=== PATIENT | male | born 1980 | race Caucasian/White ===

== ENCOUNTER 2016-10-08 18:48 | Emergency (ER) | payer SELFPAY ==
[2016-10-08] MEDS ORDERED: IBUPROFEN 800 MG TAB As Ordered ONE (20:52)
--- NOTE | 2016-10-08 21:30 | EDDOCDS ---
Physician Documentation [facility] Name: Diogenes Wong Age: 36 yrs Sex: Male : 1980 Arrival Date: 10/08/2016 Time: 18:48 Bed TR7 Private MD: Disposition: 10/08/16 21:20 Discharged to Home/Self Care. Impression: Pain in right shoulder - POSSIBLE DISLOCATION WITH SPONTANEOUS REDUCTION. - Condition is Stable. - Discharge Instructions: Shoulder Dislocation, Shoulder Pain. - Prescriptions for Ibuprofen 800 mg Oral Tablet - take 1 tablet by ORAL route every 12 hours As needed take with food; 20 tablet. - Medication Reconciliation, Local Pharmacy Hours form. - Follow up: [facility]; When: 2 - 3 days; Reason: Recheck today's complaints, Continuance of care. - Problem is new. - Symptoms have improved. - Notes: USE MOTRIN AND SLING INSTRUTCED, FOLLOW UP WITH [facility], RETURN TO THE ER IF THE SYMPTOMS WORSEN OR BECOME CONCERNING Historical: - Allergies: tylenol with codeine; - Home Meds: 1. ferrous sulfate 325 mg (65 mg iron) Oral TbEC daily - PMHx: iron deficiency anemia; - PSHx: ankle surgery; mouth surgery; - Social history: Smoking status: Patient uses tobacco products, heavy tobacco smoker. No barriers to communication noted, The patient speaks fluent Maltese, Speaks appropriately for age. - Family history: Not pertinent. - : The pt / caregiver states he / she is not on anticoagulants. Home medication list is obtained from the patient. - Exposure Risk Screening:: None identified. Vital Signs: 10/08 18:54 BP 145 / 82; Pulse 108; Resp 22 S; Temp 98.0; Pulse Ox 98% on R/A; Weight 102.06 kg / dd6 225 lbs (R); Height 5 ft. 10 in. (177.80 cm) (R); 21:27 BP 142 / 90; Pulse 82; Resp 18; Temp 98.5(T); Pulse Ox 96% on R/A; Pain 3/10; ttb 18:54 Body Mass Index 32.28 (102.06 kg, 177.80 cm) dd6 MDM: 20:[address] [facility] 20:37 [facility] Payment Agreement was scanned into MEDHOST and attached to record. [email or web address] 20:51 Ibuprofen 800 mg PO once ordered. ck7 20:53 Shoulder, Complete Ordered. EDMS 21:20 Sling ordered. ck7 Administered Medications: 20:53 Drug: Ibuprofen 800 mg [ibuprofen 800 mg tablet (1 tabs)] Route: PO; baldemar Signatures: Dispatcher MedHost EDMS Perez Gray, CARLEE-C RPA-Cck7 Anna Goode RN RN Jus Seo RN RN jmb Rebeca Navarrete, Reg Reg [email or web address] The chart was reviewed and I authenticate all verbal orders and agree with the evaluation and treatment provided.Attachments: 20:37 [facility] Payment Agreement [email or web address] MTDD
--- NOTE | 2016-10-08 21:30 | EDDOCDS ---
Nurse's Notes [facility] Name: Diogenes Wong Age: 36 yrs Sex: Male : 1980 Arrival Date: 10/08/2016 Time: 18:48 Bed TR7 Private MD: Diagnosis: Pain in right shoulder-POSSIBLE DISLOCATION WITH SPONTANEOUS REDUCTION Presentation: 10/08 18:51 Pt has arrived by ambulance. I have assessed this patient and found them stable to be dy assessed through the triage process. 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 pain worse with movement of arm. CMS intact with strong distal pulses. no obvious deformity. pt with pain like this in the past. . 18:57 Presenting complaint: Patient states: Patient reports shoulder injury. Denies jmb dislocation. Patient reports inability to move arm. Adult Sepsis Screening: The patient does not have new or worsening altered mentation. Patient's respiratory rate is less than 22. Systolic blood pressure is greater than 100. Patient has a qSOFA score of 0- Negative Sepsis Screen. Suicide/Homicide risk assessment- the patient denies having any suicidal and/or homicidal ideations and does not present with any other emotional, behavioral or mental health complaints. Status: Patient is not a services coordinator or dependent. Transition of care: patient was not received from another setting of care. 18:57 Acuity: ABDI Level 4 [facility] 18:57 Method Of Arrival: Walkin/Carried/Asstd [facility] Triage Assessment: 18:59 General: Appears uncomfortable, Behavior is appropriate for age, cooperative. Pain: jmb Location: right arm Pain currently is 10 out of 10 on a pain scale. Pt Declines HIV testing. Neurological: Level of Consciousness is awake, alert, obeys commands, Oriented to person, place, time, Speech is normal, Facial symmetry appears normal, Facial symmetry: tongue is midline. Respiratory: Airway is patent Respiratory effort is even, unlabored, Respiratory pattern is regular, symmetrical. Derm: Skin is pink, warm & dry. Musculoskeletal: Range of motion limited in right shoulder. Historical: - Allergies: tylenol with codeine; - Home Meds: 1. ferrous sulfate 325 mg (65 mg iron) Oral TbEC daily - PMHx: iron deficiency anemia; - PSHx: ankle surgery; mouth surgery; - Social history: Smoking status: Patient uses tobacco products, heavy tobacco smoker. No barriers to communication noted, The patient speaks fluent Greenlandic, Speaks appropriately for age. - Family history: Not pertinent. - : The pt / caregiver states he / she is not on anticoagulants. Home medication list is obtained from the patient. - Exposure Risk Screening:: None identified. Screenin:27 Screening information is obtained from the patient. Fall risk: No risks identified. ttb Assistance ADL's: requires no assistance with activities of daily living. Abuse/DV Screen: The patient / caregiver reports he/she is: not in a situation that causes fear, pain or injury. Nutritional screening: No deficits noted. Advance Directives: Currently, there is no health care proxy. home support is adequate. Assessment: 21:27 General: Appears in no apparent distress, well nourished, Behavior is appropriate for ttb age, cooperative, pleasant. Pain: Location: right shoulder Pain currently is 3 out of 10 on a pain scale. Neurological: Level of Consciousness is awake, alert. Cardiovascular: Chest pain is denied. Respiratory: No deficits noted. Airway is patent Respiratory effort is even, unlabored, Denies cough, shortness of breath. GI: Denies nausea, vomiting, pain. Derm: Skin is normal. Musculoskeletal: Range of motion limited in right shoulder. Injury Description: repeat injury to right shoudler. Vital Signs: 18:54 BP 145 / 82; Pulse 108; Resp 22 S; Temp 98.0; Pulse Ox 98% on R/A; Weight 102.06 kg dd6 (R); Height 5 ft. 10 in. (177.80 cm) (R); 21:27 BP 142 / 90; Pulse 82; Resp 18; Temp 98.5(T); Pulse Ox 96% on R/A; Pain 3/10; ttb 18:54 Body Mass Index 32.28 (102.06 kg, 177.80 cm) dd6 Vitals: 18:54 Log In Time: October 08, 2016 at 18:52. dd6 ED Course: 18:48 Patient visited by Barbie Jefferson, Photograph Enlarger. deg 18:48 Patient moved to Waiting deg 18:55 Patient moved to Pre RCE dd6 18:58 Triage Initiated jmb 20:15 Patient moved to Triage 2 jmb 20:31 Perez [facility] ck7 20:31 Aramis Mitchell DO is Attending Physician. ck7 20:31 Patient visited by Perez Gray RPA-C. ck7 20:37 [facility] Payment Agreement was scanned into [employer] and attached to record. ks16 20:39 Patient name changed from Diogenes\S\\S\Marvin\S\ to Diogenes\S\ \S\Marvin. EDMS 20:53 Patient moved to TR1 jmb 21:09 Patient visited by Perez Gray RPA-C. ck7 21:20 [facility] is Referral Physician. ck7 21:21 Patient moved to PR1 / 25 ttb 21:27 Patient moved to TR7 jmb 21:27 The patient / caregiver is instructed regarding the plan of care and ED course. ttb Accompanied by Family Member, Patient has correct armband on for positive identification. 21:27 No IV's were initiated during this patient's visit. No procedures done that require ttb assistance. 21:29 Sling applied to right arm. Patient with positive distal sensation and brisk distal ttb capillary refill after application. Administered Medications: 20:53 Drug: Ibuprofen 800 mg [ibuprofen 800 mg tablet (1 tabs)] Route: PO; jmb Order Results: There are currently no results for this order. Outcome: 21:20 Discharge ordered by Provider. ck7 21:27 Discharge Assessment: Patient awake, alert and oriented x 3. No cognitive and/or ttb functional deficits noted. Patient verbalized understanding of disposition instructions. Patient awake and alert. patient administered narcotics - no. The following High Risk Discharge criteria are identified: None. Discharged to home ambulatory, with parent. Condition: good Condition: stable Condition: improved. Discharge instructions given to patient, parents Instructed on discharge instructions, follow up and referral plans. medication usage, Rest, Ice, Compression and Elevation. Demonstrated understanding of instructions, medications, RICE, use of sling Pt was receptive of discharge instructions/ teaching. Prescriptions given X 1. No special radiology studies were completed. Property :Personal belongings accompany Pt. 21:29 Patient left the ED. ttb Signatures: Dispatcher MedHo EDMS Barbie Jefferson, Photograph Enlarger Unit deg Spencer Womack RN RN dy Desormeau, Daniell, APPLICATIONS SALES REPRESENTATIVE APPLICATIONS SALES REPRESENTATIVE dd6 Perez Gray RPA-C RPA-[facility]7 Anna Goode, RN RN ttb Jus Deluca,RN RN Rebeca Seymour, Reg Reg ks16 MTDD
--- NOTE | 2016-10-09 08:13 | REP ---
Clinical: Deformity and swelling . Technique: Internal rotation, external rotation, and Y view right shoulder . Findings: No acute fracture or dislocation. The acromioclavicular and glenohumeral joints are intact. No periarticular calcifications or degenerative changes are appreciated. Sub acromial space is normal. Surrounding soft tissues are unremarkable. Impression: Normal right shoulder radiographs. Signed by Anthony Guerrero MD 10/09/2016 08:04 A
--- NOTE | 2016-10-10 22:30 | EDDOCDS ---
Physician Documentation [facility] Name: Diogenes Wong Age: 36 yrs Sex: Male : 1980 Arrival Date: 10/08/2016 Time: 18:48 Bed TR7 Private MD: Disposition: 10/08/16 21:20 Discharged to Home/Self Care. Impression: Pain in right shoulder - POSSIBLE DISLOCATION WITH SPONTANEOUS REDUCTION. - Condition is Stable. - Discharge Instructions: Shoulder Dislocation, Shoulder Pain. - Prescriptions for Ibuprofen 800 mg Oral Tablet - take 1 tablet by ORAL route every 12 hours As needed take with food; 20 tablet. - Medication Reconciliation, Local Pharmacy Hours form. - Follow up: [facility]; When: 2 - 3 days; Reason: Recheck today's complaints, Continuance of care. - Problem is new. - Symptoms have improved. - Notes: USE MOTRIN AND SLING INSTRUTCED, FOLLOW UP WITH [facility], RETURN TO THE ER IF THE SYMPTOMS WORSEN OR BECOME CONCERNING Historical: - Allergies: tylenol with codeine; - Home Meds: 1. ferrous sulfate 325 mg (65 mg iron) Oral TbEC daily - PMHx: iron deficiency anemia; - PSHx: ankle surgery; mouth surgery; - Social history: Smoking status: Patient uses tobacco products, heavy tobacco smoker. No barriers to communication noted, The patient speaks fluent Turkish, Speaks appropriately for age. - Family history: Not pertinent. - : The pt / caregiver states he / she is not on anticoagulants. Home medication list is obtained from the patient. - Exposure Risk Screening:: None identified. Vital Signs: 10/08 18:54 BP 145 / 82; Pulse 108; Resp 22 S; Temp 98.0; Pulse Ox 98% on R/A; Weight 102.06 kg / dd6 225 lbs (R); Height 5 ft. 10 in. (177.80 cm) (R); 21:27 BP 142 / 90; Pulse 82; Resp 18; Temp 98.5(T); Pulse Ox 96% on R/A; Pain 3/10; ttb 18:54 Body Mass Index 32.28 (102.06 kg, 177.80 cm) dd6 MDM: 20:37 Financial registration complete. [facility] 20:37 [facility] Payment Agreement was scanned into [employer] and attached to record. [email or web address] 20:51 Ibuprofen 800 mg PO once ordered. 20:53 Shoulder, Complete Ordered. EDMS 21:20 Sling ordered. ck7 10/09 08:13 T-Sheet-- Draft Copy was scanned into [employer] and attached to record. [facility] Administered Medications: 10/08 20:53 Drug: Ibuprofen 800 mg [ibuprofen 800 mg tablet (1 tabs)] Route: PO; baldemar Signatures: Dispatcher MedHost EDMS Perez Gray, ALEM RPA-Cck7 Anna Goode, RN RN Jus SeoRN RN Rebeca Seymour, Reg Reg ks16 Joleen Quiroz se The chart was reviewed and I authenticate all verbal orders and agree with the evaluation and treatment provided.Attachments: 20:37 [facility] Payment Agreement [email or web address] 10/09 08:13 T-Sheet-- Draft Copy [facility] Chart Complete MTDD
--- NOTE | 2016-10-10 22:30 | EDDOCDS ---
Physician Documentation [facility] Name: Diogenes Wong Age: 36 yrs Sex: Male : 1980 Arrival Date: 10/08/2016 Time: 18:48 Bed TR7 Private MD: Disposition: 10/08/16 21:20 Discharged to Home/Self Care. Impression: Pain in right shoulder - POSSIBLE DISLOCATION WITH SPONTANEOUS REDUCTION. - Condition is Stable. - Discharge Instructions: Shoulder Dislocation, Shoulder Pain. - Prescriptions for Ibuprofen 800 mg Oral Tablet - take 1 tablet by ORAL route every 12 hours As needed take with food; 20 tablet. - Medication Reconciliation, Local Pharmacy Hours form. - Follow up: [facility]; When: 2 - 3 days; Reason: Recheck today's complaints, Continuance of care. - Problem is new. - Symptoms have improved. - Notes: USE MOTRIN AND SLING INSTRUTCED, FOLLOW UP WITH [facility], RETURN TO THE ER IF THE SYMPTOMS WORSEN OR BECOME CONCERNING Historical: - Allergies: tylenol with codeine; - Home Meds: 1. ferrous sulfate 325 mg (65 mg iron) Oral TbEC daily - PMHx: iron deficiency anemia; - PSHx: ankle surgery; mouth surgery; - Social history: Smoking status: Patient uses tobacco products, heavy tobacco smoker. No barriers to communication noted, The patient speaks fluent Telugu, Speaks appropriately for age. - Family history: Not pertinent. - : The pt / caregiver states he / she is not on anticoagulants. Home medication list is obtained from the patient. - Exposure Risk Screening:: None identified. Vital Signs: 10/08 18:54 BP 145 / 82; Pulse 108; Resp 22 S; Temp 98.0; Pulse Ox 98% on R/A; Weight 102.06 kg / dd6 225 lbs (R); Height 5 ft. 10 in. (177.80 cm) (R); 21:27 BP 142 / 90; Pulse 82; Resp 18; Temp 98.5(T); Pulse Ox 96% on R/A; Pain 3/10; ttb 18:54 Body Mass Index 32.28 (102.06 kg, 177.80 cm) dd6 MDM: 20:37 Financial registration complete. [facility] 20:37 [facility] Payment Agreement was scanned into RABT and attached to record. [email or web address] 20:51 Ibuprofen 800 mg PO once ordered. 20:53 Shoulder, Complete Ordered. EDMS 21:20 Sling ordered. ck7 10/09 08:13 T-Sheet-- Draft Copy was scanned into RABT and attached to record. [facility] Administered Medications: 10/08 20:53 Drug: Ibuprofen 800 mg [ibuprofen 800 mg tablet (1 tabs)] Route: PO; baldemar Signatures: Dispatcher MedHost EDMS Perez Gray, ALEM RPA-Cck7 Anna Goode, RN RN Jus SeoRN RN Rebeca Seymour, Reg Reg ks16 Joleen Quiroz se The chart was reviewed and I authenticate all verbal orders and agree with the evaluation and treatment provided.Attachments: 20:37 [facility] Payment Agreement [email or web address] 10/09 08:13 T-Sheet-- Draft Copy [facility] Chart Complete MTDD
--- NOTE | 2016-10-10 22:30 | EDDOCDS ---
Nurse's Notes [facility] Name: Diogenes Wong Age: 36 yrs Sex: Male : 1980 Arrival Date: 10/08/2016 Time: 18:48 Bed TR7 Private MD: Diagnosis: Pain in right shoulder-POSSIBLE DISLOCATION WITH SPONTANEOUS REDUCTION Presentation: 10/08 18:51 Pt has arrived by ambulance. I have assessed this patient and found them stable to be dy assessed through the triage process. 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 pain worse with movement of arm. CMS intact with strong distal pulses. no obvious deformity. pt with pain like this in the past. . 18:57 Presenting complaint: Patient states: Patient reports shoulder injury. Denies jmb dislocation. Patient reports inability to move arm. Adult Sepsis Screening: The patient does not have new or worsening altered mentation. Patient's respiratory rate is less than 22. Systolic blood pressure is greater than 100. Patient has a qSOFA score of 0- Negative Sepsis Screen. Suicide/Homicide risk assessment- the patient denies having any suicidal and/or homicidal ideations and does not present with any other emotional, behavioral or mental health complaints. Status: Patient is not a floor worker well service or dependent. Transition of care: patient was not received from another setting of care. 18:57 Acuity: ABDI Level 4 [facility] 18:57 Method Of Arrival: Walkin/Carried/Asstd [facility] Triage Assessment: 18:59 General: Appears uncomfortable, Behavior is appropriate for age, cooperative. Pain: jmb Location: right arm Pain currently is 10 out of 10 on a pain scale. Pt Declines HIV testing. Neurological: Level of Consciousness is awake, alert, obeys commands, Oriented to person, place, time, Speech is normal, Facial symmetry appears normal, Facial symmetry: tongue is midline. Respiratory: Airway is patent Respiratory effort is even, unlabored, Respiratory pattern is regular, symmetrical. Derm: Skin is pink, warm & dry. Musculoskeletal: Range of motion limited in right shoulder. Historical: - Allergies: tylenol with codeine; - Home Meds: 1. ferrous sulfate 325 mg (65 mg iron) Oral TbEC daily - PMHx: iron deficiency anemia; - PSHx: ankle surgery; mouth surgery; - Social history: Smoking status: Patient uses tobacco products, heavy tobacco smoker. No barriers to communication noted, The patient speaks fluent Guinean, Speaks appropriately for age. - Family history: Not pertinent. - : The pt / caregiver states he / she is not on anticoagulants. Home medication list is obtained from the patient. - Exposure Risk Screening:: None identified. Screenin:27 Screening information is obtained from the patient. Fall risk: No risks identified. ttb Assistance ADL's: requires no assistance with activities of daily living. Abuse/DV Screen: The patient / caregiver reports he/she is: not in a situation that causes fear, pain or injury. Nutritional screening: No deficits noted. Advance Directives: Currently, there is no health care proxy. home support is adequate. Assessment: 21:27 General: Appears in no apparent distress, well nourished, Behavior is appropriate for ttb age, cooperative, pleasant. Pain: Location: right shoulder Pain currently is 3 out of 10 on a pain scale. Neurological: Level of Consciousness is awake, alert. Cardiovascular: Chest pain is denied. Respiratory: No deficits noted. Airway is patent Respiratory effort is even, unlabored, Denies cough, shortness of breath. GI: Denies nausea, vomiting, pain. Derm: Skin is normal. Musculoskeletal: Range of motion limited in right shoulder. Injury Description: repeat injury to right shoudler. Vital Signs: 18:54 BP 145 / 82; Pulse 108; Resp 22 S; Temp 98.0; Pulse Ox 98% on R/A; Weight 102.06 kg dd6 (R); Height 5 ft. 10 in. (177.80 cm) (R); 21:27 BP 142 / 90; Pulse 82; Resp 18; Temp 98.5(T); Pulse Ox 96% on R/A; Pain 3/10; ttb 18:54 Body Mass Index 32.28 (102.06 kg, 177.80 cm) dd6 Vitals: 18:54 Log In Time: October 08, 2016 at 18:52. dd6 ED Course: 18:48 Patient visited by Barbie Jefferson, Poultry Processor. deg 18:48 Patient moved to Waiting deg 18:55 Patient moved to Pre RCE dd6 18:58 Triage Initiated jmb 20:15 Patient moved to Triage 2 jmb 20:31 Perez Gray RPA-C [facility]. ck7 20:31 Aramis Mitchell DO is Attending Physician. ck7 20:31 Patient visited by Perez Gray RPA-C. ck7 20:37 [facility] Payment Agreement was scanned into [employer] and attached to record. ks16 20:39 Patient name changed from Diogenes\S\\S\Marvin\S\ to Diogenes\S\ \S\Marvin. EDMS 20:53 Patient moved to TR1 jmb 21:09 Patient visited by Perez Gray RPA-C. ck7 21:20 [facility] is Referral Physician. ck7 21:21 Patient moved to PR1 / 25 ttb 21:27 Patient moved to TR7 jmb 21:27 The patient / caregiver is instructed regarding the plan of care and ED course. ttb Accompanied by Family Member, Patient has correct armband on for positive identification. 21:27 No IV's were initiated during this patient's visit. No procedures done that require ttb assistance. 21:29 Sling applied to right arm. Patient with positive distal sensation and brisk distal ttb capillary refill after application. 10/09 08:13 T-Sheet-- Draft Copy was scanned into [employer] and attached to record. [facility] 08:32 Shoulder, Complete Returned. EDMS Administered Medications: 10/08 20:53 Drug: Ibuprofen 800 mg [ibuprofen 800 mg tablet (1 tabs)] Route: PO; jmb Order Results: Radiology Order: Shoulder, Complete Test: Shoulder, Complete REASON FOR EXAMINATION: Deformity/Swelling; Clinical: Deformity and swelling .; ; Technique: Internal rotation, external rotation, and Y view right shoulder .; ; Findings:; No acute fracture or dislocation. The acromioclavicular and glenohumeral joints; are intact. No periarticular calcifications or degenerative changes are; appreciated. Sub acromial space is normal. Surrounding soft tissues are; unremarkable.; ; Impression:; Normal right shoulder radiographs.; ; ; Signed by; Anthony Guerrero MD 10/09/2016 08:04 A; Outcome: 21:20 Discharge ordered by Provider. ck7 21:27 Discharge Assessment: Patient awake, alert and oriented x 3. No cognitive and/or ttb functional deficits noted. Patient verbalized understanding of disposition instructions. Patient awake and alert. patient administered narcotics - no. The following High Risk Discharge criteria are identified: None. Discharged to home ambulatory, with parent. Condition: good Condition: stable Condition: improved. Discharge instructions given to patient, parents Instructed on discharge instructions, follow up and referral plans. medication usage, Rest, Ice, Compression and Elevation. Demonstrated understanding of instructions, medications, RICE, use of sling Pt was receptive of discharge instructions/ teaching. Prescriptions given X 1. No special radiology studies were completed. Property :Personal belongings accompany Pt. 21:29 Patient left the ED. ttb Signatures: Dispatcher MedHost EDMS Barbie Jefferson, Poultry Processor Unit deg Spencer Womack, RN RN Eyad Marcus, MEDICAL RECORDS TECH MEDICAL RECORDS TECH dd6 Perez Gray, RPA-C RPA-Cck7 Anna Goode RN RN Jus SeoRN RN Rebeca Seymour, Reg Reg ks16 [facility], Joleen cristina Chart Complete MTDD
== END 2016-10-08 21:29 | disposition home or self-care (01) ==
LOC: M ED 18:48
DX: M25.511 Pain in right shoulder (principal); D50.9 Iron deficiency anemia, unspecified; F17.200 Nicotine dependence, unspecified, uncomplicated; Z79.899 Other long term (current) drug therapy; Z88.5 Allergy status to narcotic agent

== ENCOUNTER 2018-04-28 06:35 | Emergency (ER) | payer SELFPAY ==
[2018-04-28] MEDS: EPINEPHrine INJ 1 MG/ML 1ML AMP IM (07:19)
[2018-04-28] MEDS: FAMOTIDINE IV BAG 20 MG in APPROPRIATE DILUENT 1 EA IV (08:17)
[2018-04-28 08:22] LABS: BASO % 0.3 % (0.0-1.0); EOS # 0.2 10^3/uL (0.0-0.50); EOS % 1.7 % (0.0-3.0); HEMATOCRIT 38.5 % (42.0-52.0); HEMOGLOBIN 12.9 g/dl (13.5-17.5); IMMATURE GRANULOCYTE % 0.2 % (0-3.0); LYMPH # 1.9 10^3/uL (1.5-4.5); LYMPH % 19.7 % (24.0-44.0); MEAN CORPUSCULAR HEMOGLOBIN 30.8 pg (27.0-33.0); MEAN CORPUSCULAR HGB CONC 33.5 g/dl (32.0-36.5); MEAN CORPUSCULAR VOLUME 91.9 fl (80.0-96.0); MONO # 0.5 10^3/uL (0.0-0.8); MONO % 5.8 % (0.0-5.0); NEUTROPHILS # 6.8 10^3/uL (1.8-7.7); NEUTROPHILS % 72.3 % (36.0-66.0); PLATELET COUNT, AUTOMATED 281 10^3/uL (150-450); RED BLOOD COUNT 4.19 10^6/uL (4.30-6.10); RED CELL DISTRIBUTION WIDTH 14.6 % (11.5-14.5); WHITE BLOOD COUNT 9.4 10^3/uL (4.0-10.0)
[2018-04-28 08:57] LABS: ERYTHROCYTE SEDIMENTATION RATE 16 mm/hr (0-15)
[2018-04-28 08:59] LABS: ALBUMIN 3.3 GM/DL (3.2-5.2); ALBUMIN/GLOBULIN RATIO 0.89 (1.00-1.93); ALKALINE PHOSPHATASE 77 U/L (45-117); ALT/SGPT 31 U/L (12-78); ANION GAP 3 MEQ/L (8-16); AST/SGOT 13 U/L (7-37); BILIRUBIN,DIRECT < 0.1 MG/DL (0.0-0.2); BILIRUBIN,TOTAL 0.3 MG/DL (0.2-1.0); BLOOD UREA NITROGEN 13 MG/DL (7-18); C REACTIVE PROTEIN QUANTITATIV 0.89 MG/DL (0.00-0.30); CALCIUM LEVEL 8.7 MG/DL (8.5-10.1); CARBON DIOXIDE LEVEL 27 MEQ/L (21-32); CHLORIDE LEVEL 110 MEQ/L (98-107); GLOMERULAR FILTRATION RATE > 60.0 (>60); GLUCOSE, FASTING 100 MG/DL (70-100); POTASSIUM SERUM 4.4 MEQ/L (3.5-5.1); SODIUM LEVEL 140 MEQ/L (136-145)
[2018-04-28 08:59] LABS: COMPLEMENT C4 17.8 MG/DL (10-40)
== END 2018-04-28 11:20 | disposition home or self-care (01) ==
LOC: M ED 06:35
DX: R22.1 Localized swelling, mass and lump, neck (principal); T78.3XXA Angioneurotic edema, initial encounter; T78.2XXA Anaphylactic shock, unspecified, initial encounter; X58.XXXA Exposure to other specified factors, initial encounter; Y92.89 Other specified places as the place of occurrence of the external cause; R03.0 Elevated blood-pressure reading, without diagnosis of hypertension; K21.9 Gastro-esophageal reflux disease without esophagitis; Z88.5 Allergy status to narcotic agent; Z88.8 Allergy status to other drugs, medicaments and biological substances; Z91.030 Bee allergy status; F17.210 Nicotine dependence, cigarettes, uncomplicated
CPT/HCPCS: 80076

== ENCOUNTER 2019-08-23 13:12 | Emergency (ER) | payer MEDICAID, SELFPAY ==
[~2019-08-23] VITALS: Ht 177.8 cm; Wt 95.5 kg
[~2019-08-23 13:12] MED LIST: EPIP0.3I2 IM
--- NOTE | 2019-08-23 14:14 | REP ---
Clinical: Chest pain . Comparison: 06/29/2009 . Findings: The mediastinum and cardiac silhouette are stable and within normal limits for portable technique. The lung meng are clear without acute consolidation, effusion, or pneumothorax. Skeletal structures are intact. Impression: No acute cardiopulmonary process appreciated. Electronically Signed by Anthony Guerrero MD 08/23/2019 02:05 P
[2019-08-23] MEDS ORDERED: SUCRALFATE SUSP 1GM/10ML UD PO ONE (14:15)
[2019-08-23 14:17] LABS: BASO # 0.1 10^3/uL (0.0-0.2); BASO % 0.8 % (0.0-1.0); EOS # 0.3 10^3/uL (0.0-0.5); EOS % 2.5 % (0.0-3.0); HEMATOCRIT 42.3 % (42.0-52.0); HEMOGLOBIN 13.5 g/dl (13.5-17.5); LYMPH # 4.1 10^3/uL (1.5-5.0); LYMPH % 38.3 % (24.0-44.0); MEAN CORPUSCULAR HEMOGLOBIN 28.8 pg (27.0-33.0); MEAN CORPUSCULAR HGB CONC 31.9 g/dl (32.0-36.5); MEAN CORPUSCULAR VOLUME 90.4 fl (80.0-96.0); MONO # 0.9 10^3/uL (0.0-0.8); NEUTROPHILS # 5.3 10^3/uL (1.5-8.5); NEUTROPHILS % 50.2 % (36.0-66.0); PLATELET COUNT, AUTOMATED 295 10^3/uL (150-450); RED BLOOD COUNT 4.68 10^6/uL (4.30-6.10); WHITE BLOOD COUNT 10.6 10^3/uL (4.0-10.0)
[2019-08-23 14:45] LABS: ALBUMIN 3.4 GM/DL (3.2-5.2); ALT/SGPT 40 U/L (12-78); AMYLASE 30 U/L (25-115); BILIRUBIN,DIRECT < 0.1 MG/DL (0.0-0.2); BILIRUBIN,TOTAL 0.2 MG/DL (0.2-1.0); BLOOD UREA NITROGEN 9 MG/DL (7-18); CALCIUM LEVEL 9.4 MG/DL (8.5-10.1); CARBON DIOXIDE LEVEL 28 MEQ/L (21-32); CHLORIDE LEVEL 105 MEQ/L (98-107); CK-MB VALUE MASS < 1.0 NG/ML (<3.6); CPK CREATINE PHOSPHOKINASE 68 U/L (39-308); GLOMERULAR FILTRATION RATE > 60.0 (>60); GLUCOSE, FASTING 124 MG/DL (70-100); LIPASE 151 U/L (73-393); MB/CK RELATIVE INDEX 1.47 (< OR =4); POTASSIUM SERUM 3.8 MEQ/L (3.5-5.1); SODIUM LEVEL 140 MEQ/L (136-145); TOTAL PROTEIN 7.3 GM/DL (6.4-8.2); TROPONIN I < 0.02 NG/ML (< 0.10)
[2019-08-23] MEDS ORDERED: PEPC1TAB5 PO (15:07)
[2019-08-23] MEDS ORDERED: SUCR1SS PO (15:07)
[2019-08-23 15:24] VITALS: BP 125/74
--- NOTE | 2019-08-23 16:31 | ECGEPIP ---
[facility] - ED Test Date: 2019-08-23 Pat Name: TANIA GALLO Department: Room: - Gender: Male Punch Machine Hand: lucas : 1980 Requested By: Joleen Samlls Order Number: [id number] Reading MD: Joleen Smalls Measurements Intervals [place] Rate: 116 P: 25 MA: 136 QRS: 9 QRSD: 82 T: 28 QT: 303 QTc: 421 Interpretive Statements SINUS TACHYCARDIA LOW QRS VOLTAGE IN PRECORDIAL LEADS NONSPECIFIC ST & T-WAVE ABNORMALITY ABNORMAL RHYTHM ECG No prior Electronically Signed on 08-23-2019 16:30:37 EST by Joleen Smalls
== END 2019-08-23 15:25 | disposition home or self-care (01) ==
LOC: M ED 13:12
DX: K21.9 Gastro-esophageal reflux disease without esophagitis (principal); K29.70 Gastritis, unspecified, without bleeding; R00.0 Tachycardia, unspecified; R94.31 Abnormal electrocardiogram [ECG] [EKG]; F17.200 Nicotine dependence, unspecified, uncomplicated; Z79.899 Other long term (current) drug therapy; Z88.5 Allergy status to narcotic agent; Z88.6 Allergy status to analgesic agent; Z91.030 Bee allergy status

== ENCOUNTER 2020-02-24 06:58 | Emergency (ER) | payer MEDICAID, OTHER ==
[~2020-02-24] VITALS: Ht 177.8 cm; Wt 94.5 kg
[~2020-02-24 06:58] MED LIST changes: +PEPC1TAB5 PO; +SUCR1SS PO
[2020-02-24 07:04] VITALS: BP 167/80
== END 2020-02-24 07:33 | disposition home or self-care (01) ==
LOC: M ED 06:58
DX: K12.2 Cellulitis and abscess of mouth (principal); K21.9 Gastro-esophageal reflux disease without esophagitis; F17.200 Nicotine dependence, unspecified, uncomplicated; Z88.5 Allergy status to narcotic agent; Z88.6 Allergy status to analgesic agent; Z91.030 Bee allergy status

== ENCOUNTER 2021-03-30 13:18 | Emergency (ER) | payer OTHER ==
[~2021-03-30] VITALS: Ht 177.8 cm; Wt 114.6 kg
--- NOTE | 2021-03-30 15:06 | REP ---
INDICATION: trauma COMPARISON: 01/15/2010. TECHNIQUE: Three views left shoulder. FINDINGS: There is no evidence of acute fracture, dislocation, or intrinsic bone disease. IMPRESSION: No fracture or dislocation. <Electronically signed by Tone Amaral > 03/30/21 1455
--- NOTE | 2021-03-30 15:10 | REP ---
INDICATION: trauma. COMPARISON: Chest 08/23/2019. TECHNIQUE: Four views left ribs, frontal view chest. FINDINGS: There is no evidence of fracture or bone lesion of left ribs. There is no infiltrate, pneumothorax or pleural effusion. The heart and mediastinum are unremarkable and unchanged. IMPRESSION: Negative left rib series. <Electronically signed by Tone Amaral > 03/30/21 [id number]
[2021-03-30] MEDS ORDERED: OMEP-221 (17:53)
[2021-03-30 18:40] VITALS: BP 168/84
== END 2021-03-30 18:49 | disposition home or self-care (01) ==
LOC: M ED 13:18
DX: Z04.1 Encounter for examination and observation following transport accident (principal); R07.9 Chest pain, unspecified; K21.9 Gastro-esophageal reflux disease without esophagitis; F17.200 Nicotine dependence, unspecified, uncomplicated

== ENCOUNTER 2022-12-27 07:43 | Emergency (ER) | payer OTHER ==
[~2022-12-27] VITALS: Ht 177.8 cm; Wt 123.0 kg
[~2022-12-27 07:43] MED LIST changes: +OMEP40CA5 PO
[2022-12-27 10:46] LABS: INR 0.94; PROTHROMBIN TIME 12.8 SECONDS (12.5-14.5)
[2022-12-27 10:47] LABS: PARTIAL THROMBOPLASTIN TIME 28.1 SECONDS (24.8-34.2)
[2022-12-27 10:48] LABS: BLOOD UREA NITROGEN 10 MG/DL (9-23); CALCIUM LEVEL 9.2 MG/DL (8.5-10.1); CARBON DIOXIDE LEVEL 26 MMOL/L (20-31); CHLORIDE LEVEL 106 MMOL/L (98-107); CREATININE FOR GFR 0.75 MG/DL (0.70-1.30); GLOMERULAR FILTRATION RATE > 60.0 (>60); GLUCOSE, FASTING 93 MG/DL (60-100); POTASSIUM SERUM 4.5 MMOL/L (3.5-5.1); SODIUM LEVEL 139 MMOL/L (136-145)
[2022-12-27] MEDS ORDERED: APIXABAN 5 MG TAB (ELIQUIS) PO ONE (11:15)
[2022-12-27] MEDS ORDERED: ELIQ5TAB PO (11:31)
[2022-12-27 11:43] VITALS: BP 159/79
== END 2022-12-27 12:02 | disposition home or self-care (01) ==
LOC: M ED 07:43
DX: I82.431 Acute embolism and thrombosis of right popliteal vein (principal); K21.9 Gastro-esophageal reflux disease without esophagitis; F17.210 Nicotine dependence, cigarettes, uncomplicated

== ENCOUNTER 2023-04-09 01:37 | Emergency (ER) | payer OTHER ==
[~2023-04-09] VITALS: Ht 177.8 cm; Wt 118.8 kg
[~2023-04-09 01:37] MED LIST changes: +ELIQ5TAB PO
[2023-04-09 07:01] LABS: HEMATOCRIT 34.8 % (42.0-52.0); HEMOGLOBIN 10.3 g/dl (13.5-17.5); MEAN CORPUSCULAR HEMOGLOBIN 20.9 pg (27.0-33.0); MEAN CORPUSCULAR HGB CONC 29.6 g/dl (32.0-36.5); MEAN CORPUSCULAR VOLUME 70.4 fl (80.0-96.0); PLATELET COUNT, AUTOMATED 419 10^3/uL (150-450); RED BLOOD COUNT 4.94 10^6/uL (4.30-6.10); WHITE BLOOD COUNT 13.6 10^3/uL (4.0-10.0)
[2023-04-09] MEDS ORDERED: ISOVUE-370 76% 100ML VIAL As Ordered ONE (07:21)
[2023-04-09 07:45] LABS: LYMPHOCYTES 28 % (16-44); MONOCYTES 6 % (0-5); NEUTROPHILS 65 % (28-66)
[2023-04-09 07:47] LABS: ANISOCYTOSIS 3+; OVALOCYTES 1+; PLATELET ESTIMATE NORMAL (NORMAL)
[2023-04-09 07:48] LABS: MICROCYTOSIS 1+; POIKILOCYTOSIS 1+; POLYCHROMASIA 1+
[2023-04-09 07:51] LABS: HYPOCHROMASIA 1+
[2023-04-09] MEDS ORDERED: LIDOCAINE 1% SDV 5ML VIAL DILUENT ONE (08:20)
[2023-04-09] MEDS ORDERED: cefTRIAXone SOD 1GM VIAL IM ONE (08:20)
[2023-04-09] MEDS ORDERED: AMOX875T2 PO (08:20)
[2023-04-09 08:38] VITALS: BP 124/68; TEMP 97.8; O2SAT 96
== END 2023-04-09 08:56 | disposition home or self-care (01) ==
LOC: M ED 01:37
DX: J03.90 Acute tonsillitis, unspecified (principal); D64.9 Anemia, unspecified; I82.401 Acute embolism and thrombosis of unspecified deep veins of right lower extremity; F17.200 Nicotine dependence, unspecified, uncomplicated; Z79.01 Long term (current) use of anticoagulants; Z88.5 Allergy status to narcotic agent; Z88.6 Allergy status to analgesic agent; Z91.030 Bee allergy status
CPT/HCPCS: 70491; 80047; 85025; 87070; 87880; 96372; 99284; J0696; Q9967

== ENCOUNTER → 2024-02-26 | Outpatient (CLI) | payer OTHER ==
[~2024-02-26] MED LIST changes: +AMOX875T2 PO
[2024-02-26 12:23] LABS: HEMATOCRIT 41.3 % (42.0-52.0); HEMOGLOBIN 13.1 g/dl (13.5-17.5); MEAN CORPUSCULAR HGB CONC 31.7 g/dl (32.0-36.5); MEAN CORPUSCULAR VOLUME 81.9 fl (80.0-96.0); PLATELET COUNT, AUTOMATED 337 10^3/uL (150-450); RED BLOOD COUNT 5.04 10^6/uL (4.30-6.10); WHITE BLOOD COUNT 10.1 10^3/uL (4.0-10.0)
[2024-02-26 12:44] LABS: ANISOCYTOSIS 2+; ATYPICAL LYMPH 9 % (0-5); EOSINOPHILS 1 % (0-3); LYMPHOCYTES 42 % (16-44); MONOCYTES 9 % (0-5); NEUTROPHILS 39 % (28-66); PLATELET ESTIMATE NORMAL (NORMAL)
[2024-02-26 12:54] LABS: IRON (FE) 42 UG/DL (65-175); PERCENT SATURATION 9.5 % (19.7-50.0); TOTAL IRON BINDING CAPACITY 444 UG/DL (250-425)
[2024-02-26 12:55] LABS: ALBUMIN 3.7 G/DL (3.2-5.2); ALKALINE PHOSPHATASE 69 U/L (46-116); ALT/SGPT 29 U/L (7.0-40); AST/SGOT 15 U/L (<34); BILIRUBIN,TOTAL 0.3 MG/DL (0.3-1.2); BLOOD UREA NITROGEN 10 MG/DL (9-23); CARBON DIOXIDE LEVEL 28 MMOL/L (20-31); CHLORIDE LEVEL 105 MMOL/L (98-107); CHOLESTEROL LEVEL 181 MG/DL (<200); CHOLESTEROL RISK RATIO 4.67 (<5); CREATININE FOR GFR 0.67 MG/DL (0.70-1.30); FERRITIN 6.4 NG/ML (10.5-307.3); GLOMERULAR FILTRATION RATE > 60.0 (>60); GLUCOSE, FASTING 99 MG/DL (60-100); HDL CHOLESTEROL 38.7 MG/DL (>40); LDL CHOLESTEROL 114.9 MG/DL (<100); NON-HDL-C 142.3 MG/DL; POTASSIUM SERUM 4.2 MMOL/L (3.5-5.1); SODIUM LEVEL 136 MMOL/L (136-145); THYROID STIMULATING HORMONE 3.001 uIU/ML (0.55-4.78); TOTAL 25(OH) VITAMIN D 31.6 NG/ML (20.0-100.0); TRIGLYCERIDES LEVEL 137 MG/DL (<150)
[2024-02-26 13:02] LABS: HEMOGLOBIN A1c 5.6 % (4.0-6.0)
== END ==
LOC: M RAD 11:35
PROVIDERS: ATTEND Nurse Practitioner Adult Health
DX: I82.401 Acute embolism and thrombosis of unspecified deep veins of right lower extremity (principal)